=== PATIENT | male | born 1950 | race Caucasian/White ===

== ENCOUNTER 2018-04-13 10:32 | Emergency (ER) | payer OTHER ==
[~2018-04-13] VITALS: Ht 175.3 cm; Wt 82.6 kg
[2018-04-13] MEDS ORDERED: SODIUM CHLORIDE 0.9% 1,000 ML IV ONE ×2 (11:00→12:08)
[2018-04-13 11:16] LABS: Basophils # (auto) 0 uL; Basophils % (auto) 0.4 % (0.0-2.0); Eosinophils # (auto) 0 uL; Eosinophils % (auto) 0.1 % (0.0-7.0); Hematocrit 41.3 % (41.0-53.0); Lymphocytes # (auto) 0.5 uL; Lymphocytes % (auto) 6.2 % (10.0-50.0); Mean Corpuscular Hemoglobin 31.3 pg (28.0-32.0); Mean Corpuscular Hgb Conc. 33.8 g/dL (32.0-36.0); Mean Corpuscular Volume 92.6 fL (80.0-100.0); Monocytes # (auto) 0.1 uL; Monocytes % (auto) 0.9 % (0.0-12.0); Neutrophils # (auto) 7.9 uL; Neutrophils % (auto) 92.4 % (37.0-80.0); Platelet Count (auto) 215 10^3/uL (140-450); Red Blood Cells 4.46 10^6/uL (4.5-5.90); Red Cell Distribution Width 13.3 % (11.8-14.3); White Blood Cell 8.6 10^3/uL (4.4-10.8)
[2018-04-13 11:33] LABS: Albumin 3.5 g/dL (3.4-5.0); BUN/Creatinine Ratio 21.1; Bilirubin, Total 0.8 mg/dL (0.2-1.0); Calcium 8.5 mg/dL (8.5-10.1); Potassium 4.9 mmol/L (3.5-5.1); Total Protein 7.1 g/dL (6.4-8.2)
[2018-04-13 13:08] LABS: Urine Bacteria NONE SEEN /hpf (None Seen); Urine Blood Negative /uL (Negative); Urine Specific Gravity 1.013 (1.001-1.035); Urine WBC 1 /hpf (0 - 3)
[2018-04-13 15:35] VITALS: BP 131/79
== END 2018-04-13 16:35 | disposition home or self-care (01) ==
LOC: ER 10:32
DX: B34.9 Viral infection, unspecified (principal); R53.1 Weakness
CPT/HCPCS: 36415; 71046; 80053; 81001; 83735; 84443; 85025; 87040; 87804; 93005; 99285; J7030

== ENCOUNTER → 2020-09-12 | Emergency (ER) | payer OTHER ==
[~2020-09-12] VITALS: Ht 175.3 cm; Wt 81.6 kg
[~2020-09-12] MED LIST: KETOROLAC TROMETH 30 MG/ML 1ML VIAL IV ONE; MORPHINE SULFATE 4 MG/ML SYR/VIAL IV ONE; ONDANSETRON HCL 4 MG/2 ML VIAL IV ONE; SODIUM CHLORIDE 0.9% 1,000 ML IVB ONE; cefTRIAXone 1GM/50ML D5W 50 ML IV ONE
[2020-09-12 15:52] LABS: Basophils # (auto) 0.1 10 ^3/uL (0-0.2); Basophils % (auto) 0.5 % (0.0-2.0); Eosinophils # (auto) 0 10 ^3/uL (0-0.8); Eosinophils % (auto) 0.2 % (0.0-7.0); Hematocrit 44.8 % (41.0-53.0); Hemoglobin 15.1 g/dL (13.5-17.5); Lymphocytes # (auto) 1.1 10 ^3/uL (0.4-5.4); Lymphocytes % (auto) 5.8 % (10.0-50.0); Mean Corpuscular Hemoglobin 31.7 pg (28.0-32.0); Mean Corpuscular Hgb Conc. 33.8 g/dL (32.0-36.0); Mean Corpuscular Volume 93.9 fL (80.0-100.0); Monocytes # (auto) 0.9 10 ^3/uL (0-1.3); Monocytes % (auto) 5.2 % (0.0-12.0); Neutrophils # (auto) 16.1 10 ^3/uL (1.6-8.6); Neutrophils % (auto) 88.3 % (37.0-80.0); Platelet Count (auto) 232 10^3/uL (140-450); Red Blood Cells 4.77 10^6/uL (4.5-5.90); Red Cell Distribution Width 13.1 % (11.8-14.3); White Blood Cell 18.2 10^3/uL (4.4-10.8)
[2020-09-12 16:11] LABS: Albumin 4.4 g/dL (3.4-5.0); Anion Gap 6 (5-15); Blood Urea Nitrogen 17 mg/dL (7-18); Carbon Dioxide 25 mmol/L (21-32); Chloride 108 mmol/L (98-107); Glucose 145 mg/dL (74-106); Potassium 4.2 mmol/L (3.5-5.1); Sodium 139 mmol/L (136-145)
[2020-09-12 16:16] LABS: Alanine Aminotransferase 36 U/L (16-61); Alkaline Phosphatase 133 U/L (45-117); Aspartate Aminotransferase 31 U/L (15-37); BUN/Creatinine Ratio 17.3; Bilirubin, Total 0.6 mg/dL (0.2-1.0); GFR African American 97 mL/min; GFR Non-African American 80 mL/min; Total Protein 8.3 g/dL (6.4-8.2)
[2020-09-12 17:11] LABS: Urine Bacteria NONE SEEN /hpf (None Seen); Urine Blood Negative /uL (Negative); Urine Mucus FEW (None Seen); Urine Specific Gravity 1.018 (1.001-1.035); Urine WBC 1 /hpf (0 - 3)
[2020-09-12 19:57] VITALS: BP 140/72
== END | disposition short-term general hospital (02) ==
LOC: ER 14:17
DX: N20.9 Urinary calculus, unspecified (principal); N39.0 Urinary tract infection, site not specified; N13.30 Unspecified hydronephrosis; Z87.891 Personal history of nicotine dependence; Z88.6 Allergy status to analgesic agent
CPT/HCPCS: 36415; 74176; 80053; 81001; 84484; 85025; 96361; 96365; 96375; 96376; 99285; J0696; J1885; J2270; J2405; J7030

== ENCOUNTER 2025-07-13 18:39 | Emergency (ER) | payer OTHER ==
[~2025-07-13] VITALS: Ht 175.3 cm; Wt 63.0 kg
--- NOTE | 2025-07-13 19:22 | ED.PDOC ---
History of Present Illness HPI Comments 74-year-old male, with a history of hypertension, is brought in by ambulance for chief complaint of syncope. Patient is reported to have passed out, while at a [employer] store, earlier, today. Patient is reported to have been assisted to the ground then without sustaining any trauma or injury. Notable history of patient dealing with diarrhea for over the past 2 weeks in addition to being taken off his blood pressure medication for over 1 week. Per EMS report, patient's heart rate was in the 40s range, with his blood pressure within normal limits. Patient denies having any chest pain, shortness of breath, dizziness, or further associated symptoms. REVIEW OF SYSTEMS: General: No fever, no chills, or fatigue HEENT: No sore throat, no earache, no congestion, no neck pain. Cardiac: Syncope. No chest pain. No palpitations. Lungs: No shortness of breath, no cough. GI: No nausea, no vomiting, no diarrhea, no constipation, no abdominal pain : No dysuria, frequency, or urgency. No hematuria. Musculoskeletal: No joint pain , no joint swelling, no extremity edema. Skin: No rash, no itching. Neuro: No headache, no dizziness, no weakness PHYSICAL EXAM: General: Awake, alert and oriented. No acute distress. Skin: Skin in warm, dry and intact. Appropriate color for ethnicity. HEENT: The head is normocephalic and atraumatic. Conjunctivae are clear without exudates or hemorrhage. Sclera is non-icteric. EOM are intact. No signs of nystagmus. Eyelids are normal in appearance without swelling or lesions. Oral mucosa is pink and moist. Hard of hearing. Neck: The neck is supple with normal range of motion. No JVD. Cardiac: Bradycardic heart rate and normal rhythm. No murmurs, gallops, or rubs are auscultated. Respiratory: No signs of respiratory distress. Lung sounds are clear in all lobes bilaterally without rales, rhonchi, or wheezes. Abdominal: Abdomen is soft, non-tender without distention, guarding or rigidity. Bowel sounds are present and normoactive in all four quadrants. Extremities: Upper and lower extremities are atraumatic in appearance without deformity or edema. Neurological: The patient is awake, alert and oriented to person, place, and time with normal speech. Speech is clear. There is no facial asymmetry. Psychiatric: Appropriate mood and affect. Good judgement and insight. Chief Complaint: Syncope Time Seen by MD: 19:10 Primary Care Provider: Giorgio Allergies: Coded Allergies: Codeine (Verified Allergy, Severe, 04/13/18) Mode of Arrival: EMS Past Medical History Surgical History: Appendectomy, Denies all surgeries Family History Family History: No family hx of Cancer, No family hx of DM, No family hx of Heart sarthak Social History Smoker: Non-Smoker, Quit Greater Than 1 Year Alcohol: Denies ETOH Use Drugs: Denies Drug Use Lives In: Home Was a procedure done? Was a procedure done?: No EKG EKG : Pulse Rate (adult): 61 [place]: Normal Cardiac Rhythm: NSR Block: None Hypertrophy: None ST: Normal Differential Dx Considerations may include: Differential diagnoses considered include but are not limited to cardiac structural disease, arrhythmia, acute coronary syndrome, orthostasis, pulmonary embolism, dissection, seizure, basilar stroke, other. X-Ray, Labs, Meds, VS Vital Signs Date Time Temp Pulse Resp B/P (MAP) Pulse Ox O2 Delivery O2 Flow Rate FiO2 07/14/25 05:00 63 17 135/73 (93) 97 07/14/25 04:00 55 17 137/69 (91) 97 07/14/25 04:00 55 07/14/25 03:00 55 17 136/75 (95) 97 07/14/25 02:00 57 17 138/68 (91) 97 07/14/25 01:48 60 07/14/25 01:00 57 15 128/68 (88) 97 07/14/25 00:01 71 07/14/25 00:00 70 15 131/71 (91) 96 07/13/25 23:52 62 07/13/25 23:00 57 16 126/66 (86) 96 07/13/25 22:56 61 07/13/25 22:46 61 07/13/25 22:00 57 16 131/65 (87) 96 07/13/25 21:00 58 15 144/69 (94) 98 07/13/25 20:19 57 12 97 Room Air* 0 21 07/13/25 20:19 98.7 57 12 142/75 (97) 97 98.7 07/13/25 18:46 97.8 56 14 119/64 94 97.8 Lab Test 07/13/25 22:04 07/13/25 20:45 Range/Units Troponin I High Sensitivity 11 12 </=54 ng/L White Blood Count 4.7 4.4-10.8 10^3/uL Red Blood Count 4.45 L 4.5-5.90 10^6/uL Hemoglobin 14.2 13.5-17.5 g/dL Hematocrit 40.8 L 41.0-53.0 % Mean Corpuscular Volume 91.6 80.0-100.0 fL Mean Corpuscular Hemoglobin 32.0 28.0-32.0 pg Mean Corpuscular Hemoglobin Concent 34.9 32.0-36.0 g/dL Red Cell Distribution Width 16.0 H 11.8-14.3 % Platelet Count 149 140-450 10^3/uL Mean Platelet Volume 7.7 6.9-10.8 fL Neutrophils (%) (Auto) 71.8 37.0-80.0 % Lymphocytes (%) (Auto) 18.8 10.0-50.0 % Monocytes (%) (Auto) 8.5 0.0-12.0 % Eosinophils (%) (Auto) 0.3 0.0-7.0 % Basophils (%) (Auto) 0.6 0.0-2.0 % Neutrophils # (Auto) 3.4 1.6-8.6 10 ^3/uL Lymphocytes # (Auto) 0.9 0.4-5.4 10 ^3/uL Monocytes # (Auto) 0.4 0-1.3 10 ^3/uL Eosinophils # (Auto) 0 0-0.8 10 ^3/uL Basophils # (Auto) 0 0-0.2 10 ^3/uL Nucleated Red Blood Cells 0.1 % Sodium Level 136 136-145 mmol/L Potassium Level 4.0 3.5-5.1 mmol/L Chloride Level 99 98-107 mmol/L Carbon Dioxide Level 27 20-31 mmol/L Anion Gap 10 5-15 Blood Urea Nitrogen 15 9-23 mg/dL Creatinine 1.12 0.700-1.30 mg/dL Glomerular Filtration Rate Calc 69 >90 mL/min BUN/Creatinine Ratio 13.4 10.0-20.0 Serum Glucose 131 H 74-106 mg/dL Calcium Level 8.2 L 8.7-10.4 mg/dL B-Type Natriuretic Peptide 115.24 0-100 pg/mL Current Medications Medications (Trade) Dose Ordered Sig/Rolando Route Start Time Stop Time Status Last Admin Sodium Chloride 1,000 ml @ 1,000 mls/hr Q1H ONCE IV 07/13/25 19:15 07/13/25 20:14 DC 07/13/25 20:[address] [address] Ph: [phone] DIAGNOSTIC IMAGING Diagnostic Imaging Report : [id number] Signed PATIENT: CINDY CHASE ACCT: [id number] UNIT: [id number] : 1950 LOC: ER ROOM / BED: / AGE / SEX: 74 / M ADM STATUS: REG ER SERVICE 19 ORDERING PHYSICIAN: GINA CASTILLO MD PROCEDURE(s): CXR1 - CHEST XRAY 1 VIEW REASON: Syncope ORDER NUMBER(s): [id number], ACCESSION NUMBER(s): [id number] CHEST RADIOGRAPH Indication: Syncope Technique: 1 view Comparison: None FINDINGS: Lines and Tubes: External leads. Lungs/Pleura: No focal consolidation, pleural effusion or pneumothorax. Cardiomediastinum: Unremarkable. Other: No acute osseous abnormality. IMPRESSION: 1. No acute cardiopulmonary abnormality. ATED BY: DANE LAMBERT MD DICTATED DATE/TIME: 07/13/252102 SIGNED BY: DANE LAMBERT MD SIGNED DATE/TIME: 07/13/252102 CC: Time of 1ST Reevaluation: 19:40 Reevaluation 1ST: Unchanged Patient Education/Counseling: Treatment Family Education/Counseling: Treatment SEPSIS Sepsis Screen Date sepsis recognized/suspect: Jul 13, 2025 Time Sepsis recognized/suspect: 1855 Recent Procedure: No On Antibiotic Therapy: No Respiratory Rate >20: No Heart Rate >90: No Temp<36 C (96.8 F) or >38.3 C: No SBP <90 or MAP <65 mmHG: No New Acute Mental Status Change: No Is the patient on CPAP, BIPAP,: No Physician Orders [employer] (07/13/25 ) Orthostatic Vital Signs (07/13/25 ) Saline Lock (07/13/25 19:15) Fall Precautions Initiated (07/13/25 19:15) Electrocardigram (07/13/25 22:15) Chest Xray 1 View (07/13/25 20:20) Imaging Transfer Request (07/13/25 23:27) Head Without Contrast (07/13/25 23:32) Vital Signs Date Time Temp Pulse Resp B/P (MAP) Pulse Ox O2 Delivery O2 Flow Rate FiO2 07/14/25 05:00 63 17 135/73 (93) 97 07/14/25 04:00 55 17 137/69 (91) 97 07/14/25 04:00 55 07/14/25 03:00 55 17 136/75 (95) 97 07/14/25 02:00 57 17 138/68 (91) 97 07/14/25 01:48 60 07/14/25 01:00 57 15 128/68 (88) 97 07/14/25 00:01 71 07/14/25 00:00 70 15 131/71 (91) 96 07/13/25 23:52 62 07/13/25 23:00 57 16 126/66 (86) 96 07/13/25 22:56 61 07/13/25 22:46 61 07/13/25 22:00 57 16 131/65 (87) 96 07/13/25 21:00 58 15 144/69 (94) 98 07/13/25 20:19 57 12 97 Room Air* 0 21 07/13/25 20:19 98.7 57 12 142/75 (97) 97 98.7 07/13/25 18:46 97.8 56 14 119/64 94 97.8 Laboratory Tests Test 07/13/25 20:45 White Blood Count 4.7 10^3/uL (4.4-10.8) Medications Medications Dose Ordered Sig/Rolando Route Start Time Stop Time Status Last Admin Dose Admin Sodium Chloride 1,000 ml @ 1,000 mls/hr Q1H ONCE IV 07/13/25 19:15 07/13/25 20:14 DC 07/13/25 20:20 Departure 1 Departure Time of Disposition: 21:44 Impression: Primary Impression: Syncope Additional Impression: Bradycardia Disposition: 09 ADMITTED INPATIENT Condition: Stable Comments MDM: 74-year-old male with syncopal episode and bradycardia. Patient is not currently hypotensive. Patient transfered to [facility] for further treatment, evaluation and monitoring. Discussed with Dr. Coburn #[id number] . Requesting CT head prior to transfer Extensive evaluation was performed in attempt to identify or rule out: (See di fferential diagnosis section) The following tests were ordered, and results were reviewed by me and discussed with patient: (See diagnostic results section) The following test were independently interpreted by me: EKG I reviewed and agreed with the following test results read by other providers: Chest x-ray I reviewed the following notes from the pt's past medical encounters: April 13, 2018 and September 12, 2020 encounters for shaking chills and nausea, vomiting, and flank pain, respectively Additional information was gathered from interviewing the following independent historians: EMS personnel and family Discussion of management or test interpretation with external physician/other qualified health chiropractic care: N/A Decision regarding hospitalization or escalation of hospital level of care: Risk and benefits of admission for further treatment of patient's condition was considered. Due to patient's current clinical condition, high risk of decline and poor outcome if discharged and need for further inpatient management and monitoring, patient will be admitted to the hospital. Critical Care Note Critical Care Time?: No Stability Stability form required: No Heart Score Heart Score: Heart Score Response (Comments) Value History N/A 0 EKG N/A 0 Age N/A 0 Risk Factors N/A 0 Troponin N/A 0 Total 0 I personally scribed for GINA CASTILLO MD ([email or web address]) on 07/13/25 at 19:22. Electronically submitted by Tyron Forte ([email or web address]). I personally scribed for GINA CASTILLO MD ([email or web address]) on 07/13/25 at 21:37. Electronically submitted by Tyron Forte ([email or web address]). I personally scribed for GINA CASTILLO MD ([email or web address]) on 07/13/25 at 22:56. Electronically submitted by Tyron Forte ([email or web address]). GINA CASTILLO MD Jul 13, 2025 19:22
[2025-07-13 20:19] VITALS: PULSE 57; RESP 12; O2SAT 97
[2025-07-13] MEDS: SODIUM CHLORIDE 0.9% 1,000 ML IV ONE (20:20)
--- NOTE | 2025-07-13 21:06 | DVH ---
CHEST RADIOGRAPH Indication: Syncope Technique: 1 view Comparison: None FINDINGS: Lines and Tubes: External leads. Lungs/Pleura: No focal consolidation, pleural effusion or pneumothorax. Cardiomediastinum: Unremarkable. Other: No acute osseous abnormality. IMPRESSION: 1. No acute cardiopulmonary abnormality.
[2025-07-13 21:26] LABS: Hematocrit 40.8 % (41.0-53.0); Hemoglobin 14.2 g/dL (13.5-17.5); Mean Corpuscular Hemoglobin 32.0 pg (28.0-32.0); Mean Corpuscular Volume 91.6 fL (80.0-100.0); Nucleated Red Blood Cells % 0.1 %
[2025-07-13 21:28] LABS: Chloride 99 mmol/L (98-107); Potassium 4.0 mmol/L (3.5-5.1); Sodium 136 mmol/L (136-145)
[2025-07-13 21:29] LABS: Anion Gap 10 (5-15); Carbon Dioxide 27 mmol/L (20-31)
[2025-07-13 21:33] LABS: Calcium 8.2 mg/dL (8.7-10.4)
[2025-07-13 21:34] LABS: BUN/Creatinine Ratio 13.4 (10.0-20.0); Blood Urea Nitrogen 15 mg/dL (9-23)
[2025-07-13 21:41] LABS: Glucose 131 mg/dL (74-106)
--- NOTE | 2025-07-13 22:50 | ECG ---
[facility] Test Date: 2025-07-13 Test Time: 22:46:10 Pat Name: [facility] Department: Room: Gender: Service Consultant: : 1950 Requested By: GINA CASTILLO Order Number: [id number] Reading MD: Jaylan Marcum Measurements Intervals [place] Rate: 61 P: 73 NM: 142 QRS: 49 QRSD: 94 T: 26 QT: 434 QTc: 438 Interpretive Statements Sinus rhythm Atrial premature complex Low voltage, extremity and precordial leads Electronically Signed On 07-15-2025 9:57:25 PDT by Jaylan Marcum Please click the below link to view image of tracing.
--- NOTE | 2025-07-13 23:56 | ECG ---
[facility] Test Date: 2025-07-13 Test Time: 23:52:04 Pat Name: [facility] Department: Room: Gender: Staff Internist Office Based Only: : 1950 Requested By: GINA CASTILLO Order Number: [id number] Reading MD: Jaylan Marcum Measurements Intervals [place] Rate: 62 P: 25 CT: 138 QRS: 53 QRSD: 99 T: 33 QT: 453 QTc: 460 Interpretive Statements Sinus rhythm Atrial premature complex Low voltage, extremity and precordial leads Electronically Signed On 07-15-2025 9:57:33 PDT by Jaylan Marcum Please click the below link to view image of tracing.
--- NOTE | 2025-07-14 00:20 | DVH ---
EXAM: CT HEAD WITHOUT CONTRAST INDICATION: Syncope TECHNIQUE: CT of the head without intravenous contrast. Radiation Dose : 1. Head: CT Dose: CTDI volume is 57.93 mGy. Dose-length product is 1044.38 mGy*cm The dose indicators for CT are the volume Computed Tomography (CT) Dose Index (CTDIvol) and the Dose Length Product (DLP), and are measured in units of mGy and mGy-cm, respectively. These indicators are not patient dose, but values generated from the CT scanner acquisition factors. The report includes radiation exposure data for exposures received during this examination. COMPARISON: None FINDINGS: Brain: No acute hemorrhage, mass effect, or cerebral edema. Moderate burden of periventricular white matter hypodensity and global parenchymal volume loss. Encephalomalacia within the left anterior fron jeromy lobe. Small left basal ganglia hypodensity compatible with a lacunar infarct. CSF Spaces: Moderate ex vacuo expansion. Bones/Soft Tissues: No acute findings. Orbits/Sinuses/Mastoids: No acute findings. Surgical lens replacements. IMPRESSION: 1. No acute intracranial abnormality. 2. 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 Radiation optimization: All CT scans at this facility use at least one of these dose optimization martina hniques: automated exposure control mA and/or kV adjustment per patient size (includes targeted exam s where dose is matched to clinical indication) or iterative reconstruction.
--- NOTE | 2025-07-14 06:34 | ECG ---
[facility] Test Date: 2025-07-14 Test Time: 01:48:24 Pat Name: CINDY LOYA Department: Room: Gender: Senior Instrumentation Engineer: : 1950 Requested By: GINA CASTILLO Order Number: [id number] Reading MD: Jaylan Marcum Measurements Intervals [place] Rate: 60 P: 57 NE: 141 QRS: 41 QRSD: 93 T: 35 QT: 440 QTc: 440 Interpretive Statements Sinus rhythm Low voltage, extremity and precordial leads Electronically Signed On 07-15-2025 9:58:26 PDT by Jaylan Marcum Please click the below link to view image of tracing.
[2025-07-14 06:45] VITALS: BP 97/54; PULSE 60; RESP 18; TEMP 98; O2SAT 98
== END 2025-07-14 06:50 | disposition short-term general hospital (02) ==
LOC: EDBD 18:39 → ER 18:44 → EEVIPCON 18:44 → ER 07-14 06:50
DX: R55 Syncope and collapse (principal); R00.1 Bradycardia, unspecified; Z90.49 Acquired absence of other specified parts of digestive tract; Z88.5 Allergy status to narcotic agent
CPT/HCPCS: 36415; 70450; 71045; 80048; 83880; 84484; 85025; 93005; 96360; 99285; J7030